=== PATIENT | female | born 1990 | race Caucasian/White ===

== ENCOUNTER 2022-05-01 14:39 | Outpatient (CLI) | payer OTHER, SELFPAY | END 2022-05-01 14:40 | disposition home or self-care (01) | PROVIDERS: Visit Provider Registered Nurse | DX: N92.6 Irregular menstruation, unspecified (principal) | CPT/HCPCS: 84443 ==

== ENCOUNTER 2023-12-30 13:25 | Outpatient (CLI) | payer OTHER, SELFPAY | END 2023-12-30 13:26 | disposition home or self-care (01) | PROVIDERS: PCP Registered Nurse; Visit Provider Registered Nurse | DX: R53.83 Other fatigue (principal); N92.0 Excessive and frequent menstruation with regular cycle; N97.9 Female infertility, unspecified; G43.909 Migraine, unspecified, not intractable, without status migrainosus; Z12.4 Encounter for screening for malignant neoplasm of cervix | CPT/HCPCS: 82306; 84443 ==

== ENCOUNTER 2025-07-19 20:04 | Emergency (ER) | payer OTHER, SELFPAY ==
[2025-07-19 20:07] VITALS: BP 109/63; PULSE 123; RESP 18; TEMP 38.2; O2SAT 97; BMI 27.8
--- NOTE | 2025-07-19 20:30 | ED.GENADULT ---
HPI - General Adult General Chief complaint: Headache/Migraine Stated complaint: Headache,cough,fever Time Seen by Provider: 07/19/25 20:08 History of Present Illness HPI narrative: This 34-year-old female comes in reporting headache, fever, cough, and generalized body aches and pains. These symptoms started last evening. Prior to this she felt better but a week or 2 before she had upper respiratory symptoms that seemed to resolve. She does have a history of migraine headaches. She did take [id number] medicines and her sumatriptan which did not provide any relief for her headache. She states that her headache is the primary symptoms that is most bothersome. Related Data Previous Rx's ?Medication ?Instructions ?Recorded sumatriptan succinate 100 mg tablet 100 mg PO ONCE PRN migraine 06/15/24 headache #10 tabs Allergies Allergy/AdvReac Type Severity Reaction Status Date / Time No Known Drug Allergies Allergy Verified 07/19/25 20:17 Review of Systems Status of ROS: Reports: 10 or more systems reviewed and unremarkable except as noted in History and below Narrative: Constitutional: No weight gain or loss. She arrives with a fever. Eyes: No discharge. No vision changes. HENT: No congestion, no sore throat, no ear pain. Cardiovascular: No chest pain, no palpitations. Respiratory: No shortness of breath, no wheezes. He reports a cough. Gastrointestinal: No abdominal pain, no vomiting, no diarrhea. Genitourinary: No dysuria, no hematuria. Musculoskeletal: Normal range of motion. Skin: No rashes, no pruritis. Neurological: No dizziness, weakness, sensory change, speech change. Endo/Heme/Allergies: No bruising or bleeding. No polydipsia. Pysch: no suicidality, no anxiety, no insomnia. All other systems reviewed and are negative. [facility] Medical History (Updated 07/19/25 @ 21:16 by Sanju Tidwell MD) Menorrhagia ?N92.0 - Excessive and frequent menstruation with regular cycle (ICD-10) Migraine headache ?G43.909 - Migraine, unspecified, not intractable, without status migrainosus (ICD-10) Chlamydia ?A74.9 - Chlamydial infection, unspecified (ICD-10) Family History Aunt Breast cancer Social History (Updated 06/15/24 @ 14:23 by Miri Velarde ~ [facility], [facility]) What is your current living situation?: I presently have a place to live Problems where you live: no known problems In the past 12 months, utilities in danger of being shut off: no In past 12 months, lack of transportation kept you from medical appts, meetings, work, or getting things needed for daily living: no In the past 12 mos, have been you worried that your food would run out before you had money to buy more?: never true In the past 12 mos, the food you bought just didn't last and you didn't have money to buy more?: never true Smoking Status: Never smoker How often does anyone, including family, friends and others, physically hurt you: never How often does anyone, including family, friends and others, insult or talk down to you: never How often does anyone, including family, friends and others, threaten you with harm: never How often does anyone, including family, friends and others, scream or curse at you: never Exam Narrative: Exam Narrative: Constitutional: Well-developed, well-nourished, no acute distress. HEENT: Normocephalic, atraumatic. Neck: Normal range of motion. Nontender. Supple. Heart: Regular. No murmurs. Tachycardia. Intact distal pulses. Lungs: Clear to auscultation. No chest discomfort. No wheezes, rhonchi, or rales. Abdomen: Normal bowel sounds. Nontender. No rebound tenderness. Genitalia: Deferred. Back: No midline tenderness. Normal range of motion. Extremities: Normal range of motion. No injury. Skin: Intact. No rash. Warm. No erythema or pallor. Neurologic: No altered sensation. No weakness. Alert and oriented. Psychiatric: No suicidality. No anxiety or depression. No insomnia. Nursing notes and vitals signs are reviewed. Const: Vital Signs, click to edit/add: Vital Signs - 24 hr 07/19/25 20:07 Temperature 100.7 F H Pulse Rate [Pulse Oximeter] 123 H Respiratory Rate 18 Blood Pressure [Ri ght Upper Arm] 109/63 Pulse Oximetry 97 Oxygen Delivery Me thod Room Air Course Vital Signs Vital signs: Initial Vital Signs Temperature 100.7 F H 07/19/25 20:07 Temperature Source Temporal Artery Scan 07/19/25 20:07 Pulse Rate 123 H 07/19/25 20:07 Respiratory Rate 18 07/19/25 20:07 Blood Pressure 109/63 07/19/25 20:07 Blood Pressure Mean 78 07/19/25 20:07 Blood Pressure Position Sitting 07/19/25 20:07 Pulse Oximetry 97 07/19/25 20:07 Oxygen Delivery Method Room Air 07/19/25 20:07 Vital Signs Temperature 100.7 F H 07/19/25 20:07 Pulse Rate 123 H 07/19/25 20:07 Respiratory Rate 18 07/19/25 20:07 Blood Pressure 109/63 07/19/25 20:07 Pulse Oximetry 97 07/19/25 20:07 Oxygen Delivery Method Room Air 07/19/25 20:07 Temperature 100.7 F H 07/19/25 20:07 Pulse Rate 123 H 07/19/25 20:07 Respiratory Rate 18 07/19/25 20:07 Blood Pressure 109/63 07/19/25 20:07 Pulse Oximetry 97 07/19/25 20:07 Oxygen Delivery Method Room Air 07/19/25 20:07 Medications Administered Medications: Generic Name Dose Route Start Last Admin Trade Name Freq PRN Reason Stop Dose Admin Sodium Chloride 1,000 mls @ 1,000 mls/hr 07/19/25 20:30 07/19/25 20:48 0.9 % Sodium Chloride 1000 Ml IV 07/19/25 21:29 1,000 mls/hr .Q1H MATILDE Administration Discontinued Medications Generic Name Dose Route Start Last Admin Trade Name Freq PRN Reason Stop Dose Admin Ketorolac Tromethamine 30 mg 07/19/25 20:28 07/19/25 20:48 Ketorolac 30 Mg/Ml Inj IVP 07/19/25 20:29 30 mg ONCE ONE Administration Methylprednisolone Sodium Succinate 125 mg 07/19/25 20:28 07/19/25 20:48 Methylprednisolone Sod Succ 62.5 Mg/Ml (125) IVP 07/19/25 20:29 125 mg ONCE ONE Administration Ondansetron HCl 4 mg 07/19/25 20:28 07/19/25 20:48 Ondansetron 2 Mg/Ml Inj IVP 07/19/25 20:29 4 mg ONCE ONE Administration Medical Decision Making MDM Narrative Medical decision making narrative: This patient comes in with fever, cough, and body aches and pains that started last evening. An IV was established where she received a L of normal saline along with Toradol, methylprednisolone, and Zofran. Her lab results returned with reassuring findings. Her lactate is normal and her white count is also normal. Nasal pharyngeal swab returns positive for influenza A. She is a candidate for Tamiflu and received a prescription for this along with Toradol from the [employer] machine. Lab Data Labs: Lab Results 07/19/25 07/19/25 Range/Units 20:18 20:36 WBC 6.50 (4.50-11.00) K/uL RBC 4.78 (4.00-5.20) m/uL Hgb 13.6 (12.0-16.0) gm/dL Hct 39.8 (33.0-51.0) % MCV 83 (80-100) fL MCH 29 (26-34) pg MCHC 34 (32-36) gm/dL RDW Coeff of Violeta 12.1 (11.5-15.5) % Plt Count 370 (140-440) K/uL Neut % (Auto) 76.5 H (42.0-72.0) % Lymph % (Auto) 6.6 L (20-44) % Burt % (Auto) 15.7 H (0.0-11.0) % Eos % (Auto) 0.8 (0.0-7.0) % Baso % (Auto) 0.2 (0.0-3.0) % Neut # (Auto) 5.00 (1.7-7.0) K/uL Lymph # (Auto) 0.40 L (0.90-2.90) K/uL Burt # (Auto) 1.00 H (0.00-0.90) K/UL Eos # (Auto) 0.05 (0.00-0.50) K/uL Baso # (Auto) 0.01 (0.00-0.30) K/uL Abs Immat Gran (auto) 0.01 (0.00-0.30) K/uL Imm/Tot Granulo (auto) 0.2 % Lactate 1.0 (0.5-1.9) mmol/L SARS-CoV-2 (PCR) Negative SARS-CoV-2 (Negative) Influenza Type A (PCR) POSITIVE PCR FLU A A (Negative) Influenza Type B (PCR) Negative PCR FLU B (Negative) RSV (PCR) Negative PCR RSV (Negative) Discharge Plan Discharge Clinical Impression: Influenza A Patient Disposition: Home, Self-Care Condition: Stable Additional Instructions: Take medications as prescribed. Follow up with MD return if worsening symptoms occur. Prescriptions: No Action sumatriptan succinate 100 mg tablet 100 mg PO ONCE PRN (Reason: migraine headache) Qty: 10 5RF Rx Instructions: may repeat dose x1 after at least 2 hours; max amount 200mg/24 hours Follow Up/Referrals: Angelina Gonzalez, EDI MANAGER [Primary Care Provider, [employer] CIG[employer]KING SUPER[employer]OR] Stand Alone Forms: [employer] [facility] Info Instructions
[2025-07-19 20:47] LABS: Hematocrit* 39.8 % (33.0-51.0); Hemoglobin* 13.6 gm/dL (12.0-16.0); Immature Granulocytes Abs Auto 0.01 K/uL (0.00-0.30); Immature Granulocytes Pct Auto 0.2 %; Mean Corpuscular HGB Conc 34 gm/dL (32-36); Mean Corpuscular Hemoglobin 29 pg (26-34); Mean Corpuscular Volume 83 fL (80-100); RDW Coefficient of Variation % 12.1 % (11.5-15.5); Red Blood Count* 4.78 m/uL (4.00-5.20); White Blood Count* 6.50 K/uL (4.50-11.00)
[2025-07-19] MEDS: ONDANSETRON 2 MG/ML inj 4 MG IVP (20:48)
[2025-07-19] MEDS: METHYLPREDNISOLONE SOD SUCC 62.5 MG/ML (125) 125 MG IVP (20:48)
[2025-07-19 20:51] LABS: Lymphocytes Absolute Auto 0.40 K/uL (0.90-2.90); Slide Review Reflex No
[2025-07-19 21:00] LABS: Lactate* 1.0 mmol/L (0.5-1.9)
[2025-07-19 21:10] LABS: PCR FLU A POSITIVE PCR FLU A (Negative); PCR FLU B Negative PCR FLU B (Negative); PCR RSV Negative PCR RSV (Negative); SARS PCR* Negative SARS-CoV-2 (Negative)
[2025-07-19 21:59] VITALS: PULSE 98; RESP 16; O2SAT 98
== END 2025-07-19 22:03 | disposition home or self-care (01) ==
PROVIDERS: Emergency Provider Emergency Medicine Emergency Medical Services; PCP Registered Nurse
DX: J10.1 Influenza due to other identified influenza virus with other respiratory manifestations (principal)
CPT/HCPCS: 36415; 83605; 85025; 87040; 87631; 96361; 96374; 96375; 99284; J1885; J2405; J2919; J7030